=== PATIENT | female | born 1950 | race Asian ===

== ENCOUNTER 2023-02-27 11:50 | Emergency (ER) | payer OTHER ==
[~2023-02-27] VITALS: Ht 167.6 cm; Wt 64.9 kg
[2023-02-27 12:35] LABS: PLATELET COUNT 237 K/uL (152-353)
[2023-02-27 12:47] LABS: POTASSIUM 4.4 mmol/L (3.6-5.2)
[2023-02-27] MEDS ORDERED: ALLO100T22 PO (16:22)
[2023-02-27] MEDS ORDERED: LORA0.5T17 PO (16:24)
[2023-02-27] MEDS ORDERED: LIPITOR40 MG PO (16:25)
[2023-02-27] MEDS ORDERED: ZIAC PO (16:26)
[2023-02-27] MEDS ORDERED: CITA20TA2 PO (16:27)
[2023-02-27] MEDS ORDERED: DONE5TAB PO (16:28)
[2023-02-27] MEDS ORDERED: FURO40TA93 PO (16:30)
[2023-02-27] MEDS ORDERED: INSUINJP SC (16:32)
[2023-02-27] MEDS ORDERED: LISINOP/HCTZ1 TA2 PO (16:33)
[2023-02-27] MEDS ORDERED: METF500T PO (16:34)
[2023-02-27] MEDS ORDERED: NIFE60TA5 PO (16:35)
== END 2023-02-27 12:55 | disposition still patient (30) ==
LOC: ED 11:50
PROVIDERS: Emergency Medicine
DX: G30.8 Other Alzheimer's disease (principal); F02.811 Dementia in other diseases classified elsewhere, unspecified severity, with agitation; N39.0 Urinary tract infection, site not specified; E11.65 Type 2 diabetes mellitus with hyperglycemia; Z11.52 Encounter for screening for COVID-19; Z04.6 Encounter for general psychiatric examination, requested by authority
CPT/HCPCS: 36415; 80053; 81000; 85027; 87086; 87088; 87635; 99283; U0003